=== PATIENT | male | born 1940 | race Caucasian/White ===

== ENCOUNTER 2018-01-08 10:18 | Inpatient (IN) | payer OTHER ==
[~2018-01-08] VITALS: Ht 162.6 cm; Wt 71.8 kg
[2018-01-08] MEDS ORDERED: IPRATROPIUM/ALBUTEROL SULFATE 3 ML SOLUTION IH ONE (10:21)
[2018-01-08 10:35] LABS: ABG BASE EXCESS -1.8 mmol/L (-2.0-3.0); ABG HCO3 20.9 mmol/L (21.0-28.0); ABG OXYGEN SATURATION 98.8 % (95.0-99.0); ABG PCO2 30 mmHg (35-48)
[2018-01-08 10:41] LABS: BASOPHILS % (AUTO) 1.2 % (0.0-5.0); HEMATOCRIT 49.7 % (42-54); MEAN CORPUSCULAR HEMOGLOBIN 32.2 pg (27.0-33.0); MEAN CORPUSCULAR HGB CONC 34.9 g/dL (32.0-36.0); MEAN CORPUSCULAR VOLUME 92.3 fL (79-99); MONOCYTES % (AUTO) 9.2 % (3.0-13.0); NEUTROPHILS % (AUTO) 66.6 % (40.0-77.0); NUCLEATED RED BLOOD CELLS 0.1 % (0.0-0.19); PLATELET COUNT (AUTO) 198 K/uL (130-400); RED BLOOD CELL COUNT(AUTO) 5.39 MIL/uL (4.50-6.20)
[2018-01-08 10:47] LABS: POTASSIUM 4.1 mmol/L (3.5-5.1)
[2018-01-08 10:50] LABS: INR 1.09 (0.85-1.15); PARTIAL THROMBOPLASTIN TIME 29.9 SEC (26.3-35.5); PROTHROMBIN TIME 11.4 SEC (9.6-11.6)
[2018-01-08] MEDS ORDERED: LEVOFLOXACIN 500 MG/D5W 100 ML 100 ML ONE (10:52)
[2018-01-08] MEDS ORDERED: CEFTRIAXONE SODIUM 1 GM ONE (10:53)
[2018-01-08 11:00] LABS: ALBUMIN 3.3 g/dL (3.5-5.0); BILIRUBIN,TOTAL 0.8 mg/dL (0.2-1.0); CREATINE KINASE MB 0.6 ng/mL (0.5-3.6); TOTAL PROTEIN, SERUM 7.7 g/dL (6.0-8.3)
[2018-01-08 11:09] LABS: B-TYPE NATRIURETIC PEPTIDE 93 pg/mL (0-100)
[2018-01-08 12:04] LABS: APPEARANCE,URINE Clear (CLEAR); BILIRUBIN,URINE Negative (NEGATIVE); COLOR,URINE Dark Yellow (YELLOW); GLUCOSE, URINE (UA) Negative (NEGATIVE); KETONES,URINE Negative (NEGATIVE); LEUKOCYTE ESTERASE ,URINE Negative (NEGATIVE); NITRATE,URINE Negative (NEGATIVE); OCCULT BLOOD,URINE Negative (NEGATIVE); PROTEIN,URINE Negative (NEGATIVE)
[2018-01-08 12:21] VITALS: BP 151/86
[2018-01-08] MEDS ORDERED: SODIUM CHLORIDE 0.9% 10 ML VIAL IVP PRN (12:30)
[2018-01-08] MEDS: IPRATROPIUM/ALBUTEROL SULFATE 3 ML SOLUTION IH SCH ×3 (14:43→22:06)
[2018-01-08 16:00] VITALS: BP 155/83
[2018-01-08 19:48] VITALS: BP 144/75
[2018-01-08] MEDS: METHYLPREDNISOLONE SOD SUCC 40MG/ML 1ML IVP SCH (21:13)
[2018-01-09] VITALS (7 sets, daily range): BP systolic 124–142; BP diastolic 72–90
[2018-01-09] MEDS: IPRATROPIUM/ALBUTEROL SULFATE 3 ML SOLUTION IH SCH ×6 (01:42→21:56)
[2018-01-09 03:11] LABS: CREATININE 1.1 mg/dL (0.5-1.5); MAGNESIUM 2.1 mg/dL (1.80-2.40); POTASSIUM 4.5 mmol/L (3.5-5.1)
[2018-01-09 03:12] LABS: HEMATOCRIT 51.4 % (42-54); MEAN CORPUSCULAR HEMOGLOBIN 32.4 pg (27.0-33.0); MEAN CORPUSCULAR HGB CONC 34.6 g/dL (32.0-36.0); MEAN CORPUSCULAR VOLUME 93.6 fL (79-99); NUCLEATED RED BLOOD CELLS 0.1 % (0.0-0.19); PLATELET COUNT (AUTO) 209 K/uL (130-400); RED CELL DISTRIBUTION WIDTH 13.2 % (11.0-15.5); WHITE BLOOD COUNT (AUTO) 7.6 K/uL (4.8-10.8)
[2018-01-09] MEDS: METHYLPREDNISOLONE SOD SUCC 40MG/ML 1ML IVP SCH ×2 (08:40→21:42)
[2018-01-09] MEDS: ENOXAPARIN SODIUM 40 MG/0.4 ML SYRINGE SQ SCH (08:40)
[2018-01-09] MEDS: PANTOPRAZOLE SODIUM 40 MG TABLET.DR PO SCH (08:40)
[2018-01-09] MEDS ORDERED: MAGN250T10 PO (12:18)
[2018-01-09] MEDS ORDERED: [UNRECOGNIZED DRUG - OTHER] (12:18)
[2018-01-09] MEDS ORDERED: LANS30CA55 PO (12:18)
[2018-01-09] MEDS ORDERED: SYSTANE I PO (12:18)
[2018-01-09] MEDS ORDERED: ALBU18HF7 IH (12:18)
[2018-01-09] MEDS ORDERED: VIT1CAPS47 PO (12:18)
[2018-01-09] MEDS ORDERED: DICL50TA9 PO (12:18)
[2018-01-09] MEDS ORDERED: oil of oregano PO (12:18)
[2018-01-09] MEDS ORDERED: CRAN500C3 PO (12:18)
[2018-01-09] MEDS ORDERED: TIOT18CA3 IH (12:18)
[2018-01-09] MEDS ORDERED: [UNRECOGNIZED DRUG - OTHER] PO (12:18)
[2018-01-09] MEDS ORDERED: GLUC1CAP14 PO (12:18)
[2018-01-09] MEDS ORDERED: EPHE1TAB PO (12:19)
[2018-01-09] MEDS: LEVOFLOXACIN 500 MG/D5W 100 ML 100 ML IV SCH (16:56)
[2018-01-09] MEDS: IPRATROPIUM 0.5 MG/2.5 ML INH IH SCH (18:00)
[2018-01-10] MEDS: IPRATROPIUM/ALBUTEROL SULFATE 3 ML SOLUTION IH SCH ×6 (02:26→21:49)
[2018-01-10 03:28] VITALS: BP_DIAS 73
[2018-01-10 04:26] LABS: HEMATOCRIT 46.3 % (42-54); MEAN CORPUSCULAR HEMOGLOBIN 31.6 pg (27.0-33.0); MEAN CORPUSCULAR HGB CONC 33.8 g/dL (32.0-36.0); MEAN CORPUSCULAR VOLUME 93.4 fL (79-99); PLATELET COUNT (AUTO) 225 K/uL (130-400); RED BLOOD CELL COUNT(AUTO) 4.95 MIL/uL (4.50-6.20); RED CELL DISTRIBUTION WIDTH 13.3 % (11.0-15.5); WHITE BLOOD COUNT (AUTO) 12.7 K/uL (4.8-10.8)
[2018-01-10 04:35] LABS: CREATININE 1.2 mg/dL (0.5-1.5); POTASSIUM 4.8 mmol/L (3.5-5.1)
[2018-01-10 07:00] VITALS: BP 143/80
[2018-01-10] MEDS ORDERED: METHYLPREDNISOLONE SOD SUCC 40MG/ML 1ML IVP SCH (09:00)
[2018-01-10] MEDS: PANTOPRAZOLE SODIUM 40 MG TABLET.DR PO SCH (10:07)
[2018-01-10] MEDS: LEVOFLOXACIN 500 MG/D5W 100 ML 100 ML IV SCH (10:07)
[2018-01-10] MEDS: ENOXAPARIN SODIUM 40 MG/0.4 ML SYRINGE SQ SCH (10:08)
[2018-01-10 11:00] VITALS: BP 129/67
[2018-01-10 16:00] VITALS: BP 138/78
[2018-01-10] MEDS: IPRATROPIUM 0.5 MG/2.5 ML INH IH SCH (18:00)
[2018-01-10 20:05] VITALS: BP 135/75
[2018-01-10 23:35] VITALS: BP 137/77
[2018-01-11] MEDS: IPRATROPIUM/ALBUTEROL SULFATE 3 ML SOLUTION IH SCH ×6 (01:35→21:41)
[2018-01-11 04:20] LABS: HEMATOCRIT 45.1 % (42-54); MEAN CORPUSCULAR HEMOGLOBIN 32.2 pg (27.0-33.0); MEAN CORPUSCULAR HGB CONC 34.7 g/dL (32.0-36.0); MEAN CORPUSCULAR VOLUME 92.9 fL (79-99); PLATELET COUNT (AUTO) 217 K/uL (130-400); RED BLOOD CELL COUNT(AUTO) 4.85 MIL/uL (4.50-6.20); RED CELL DISTRIBUTION WIDTH 13.2 % (11.0-15.5); WHITE BLOOD COUNT (AUTO) 9.6 K/uL (4.8-10.8)
[2018-01-11 04:30] LABS: CREATININE 1.3 mg/dL (0.5-1.5); MAGNESIUM 1.9 mg/dL (1.80-2.40); POTASSIUM 4.1 mmol/L (3.5-5.1)
[2018-01-11 05:38] VITALS: BP 122/77
[2018-01-11 08:07] VITALS: BP 151/83
[2018-01-11] MEDS: PANTOPRAZOLE SODIUM 40 MG TABLET.DR PO SCH (08:57)
[2018-01-11] MEDS: PREDNISONE 20 MG TABLET PO SCH (08:57)
[2018-01-11] MEDS: LEVOFLOXACIN 500 MG/D5W 100 ML 100 ML IV SCH (08:57)
[2018-01-11] MEDS: ENOXAPARIN SODIUM 40 MG/0.4 ML SYRINGE SQ SCH (08:58)
[2018-01-11 11:45] VITALS: BP 141/88
[2018-01-11 16:00] VITALS: BP 136/82
[2018-01-11] MEDS: IPRATROPIUM 0.5 MG/2.5 ML INH IH SCH ×2 (18:00)
[2018-01-11 20:15] VITALS: BP 122/73
[2018-01-12] VITALS (7 sets, daily range): BP systolic 117–141; BP diastolic 67–76
[2018-01-12] MEDS: IPRATROPIUM/ALBUTEROL SULFATE 3 ML SOLUTION IH SCH ×6 (01:31→22:13)
[2018-01-12 04:12] LABS: HEMATOCRIT 44.5 % (42-54); MEAN CORPUSCULAR HEMOGLOBIN 32.3 pg (27.0-33.0); MEAN CORPUSCULAR HGB CONC 34.8 g/dL (32.0-36.0); MEAN CORPUSCULAR VOLUME 92.9 fL (79-99); PLATELET COUNT (AUTO) 209 K/uL (130-400); RED BLOOD CELL COUNT(AUTO) 4.79 MIL/uL (4.50-6.20); WHITE BLOOD COUNT (AUTO) 8.3 K/uL (4.8-10.8)
[2018-01-12 04:16] LABS: CREATININE 1.1 mg/dL (0.5-1.5)
[2018-01-12] MEDS: IPRATROPIUM 0.5 MG/2.5 ML INH IH SCH ×3 (06:00→12:00)
[2018-01-12 06:26] LABS: BAND NEUTROPHILS % (MANUAL) 1 % (0-2); LYMPHOCYTES % (MANUAL) 20 % (22-44); MAN.DIFF COMMENT-IMPRESSION MANUAL DIFFERENTIAL; MONOCYTES % (MANUAL) 11 % (2-9); PLATELET MORPHOLOGY COMMENT ADEQUATE; SEGMENTED NEUTROPHILS % 68 % (40-70)
[2018-01-12] MEDS: PANTOPRAZOLE SODIUM 40 MG TABLET.DR PO SCH (10:06)
[2018-01-12] MEDS: PREDNISONE 20 MG TABLET PO SCH (10:06)
[2018-01-12] MEDS: ENOXAPARIN SODIUM 40 MG/0.4 ML SYRINGE SQ SCH (10:07)
[2018-01-12] MEDS: LEVOFLOXACIN 500 MG/D5W 100 ML 100 ML IV SCH (10:07)
[2018-01-12] MEDS: LACTULOSE 20 GM/30 ML UDCUP PO SCH (12:00)
[2018-01-12] MEDS ORDERED: VANCOMYCIN PROTOCOL PER PHARMACY IV SCH (14:30)
[2018-01-12] MEDS: BUDESONIDE 0.5 MG/2 ML INH IH SCH (18:53)
[2018-01-12] MEDS ORDERED: SUB PER P&T FOR ASTHMA OR COPD RECOMMENDATION IH SCH (21:00)
[2018-01-13] MEDS: IPRATROPIUM/ALBUTEROL SULFATE 3 ML SOLUTION IH SCH ×6 (01:58→21:43)
[2018-01-13 03:34] VITALS: BP 122/60
[2018-01-13 04:27] LABS: HEMATOCRIT 43.6 % (42-54); MEAN CORPUSCULAR HEMOGLOBIN 32.2 pg (27.0-33.0); MEAN CORPUSCULAR HGB CONC 34.8 g/dL (32.0-36.0); MEAN CORPUSCULAR VOLUME 92.4 fL (79-99); PLATELET COUNT (AUTO) 221 K/uL (130-400); RED BLOOD CELL COUNT(AUTO) 4.72 MIL/uL (4.50-6.20); RED CELL DISTRIBUTION WIDTH 12.8 % (11.0-15.5); WHITE BLOOD COUNT (AUTO) 7.5 K/uL (4.8-10.8)
[2018-01-13 04:46] LABS: CREATININE 1.2 mg/dL (0.5-1.5); MAGNESIUM 1.9 mg/dL (1.80-2.40); POTASSIUM 3.5 mmol/L (3.5-5.1)
[2018-01-13 05:03] LABS: BAND NEUTROPHILS % (MANUAL) 6 % (0-2); LYMPHOCYTES % (MANUAL) 12 % (22-44); MONOCYTES % (MANUAL) 13 % (2-9); SEGMENTED NEUTROPHILS % 69 % (40-70)
[2018-01-13 05:04] LABS: MAN.DIFF COMMENT-IMPRESSION MANUAL DIFFERENTIAL; PLATELET MORPHOLOGY COMMENT ADEQUATE
[2018-01-13] MEDS: BUDESONIDE 0.5 MG/2 ML INH IH SCH ×2 (06:17→19:09)
[2018-01-13 07:00] VITALS: BP 132/72
[2018-01-13] MEDS: PREDNISONE 20 MG TABLET PO SCH (08:43)
[2018-01-13] MEDS: PANTOPRAZOLE SODIUM 40 MG TABLET.DR PO SCH (08:43)
[2018-01-13] MEDS: Diclofenac Sodium 50 MG PO SCH ×2 (08:45→21:00)
[2018-01-13] MEDS: MAGNESIUM OXIDE PO SCH (08:45)
[2018-01-13] MEDS: [UNRECOGNIZED DRUG - OTHER] PO SCH (08:45)
[2018-01-13] MEDS: ENOXAPARIN SODIUM 40 MG/0.4 ML SYRINGE SQ SCH (08:45)
[2018-01-13 11:00] VITALS: BP 120/66
[2018-01-13] MEDS: LACTULOSE 20 GM/30 ML UDCUP PO SCH (11:54)
[2018-01-13] MEDS ORDERED: AMOXICILLIN 500 MG CAPSULE PO SCH (15:17)
[2018-01-13 15:52] LABS: HEMATOCRIT 46.9 % (42-54); MEAN CORPUSCULAR HEMOGLOBIN 32.1 pg (27.0-33.0); MEAN CORPUSCULAR HGB CONC 34.7 g/dL (32.0-36.0); MEAN CORPUSCULAR VOLUME 92.4 fL (79-99); PLATELET COUNT (AUTO) 226 K/uL (130-400); RED BLOOD CELL COUNT(AUTO) 5.07 MIL/uL (4.50-6.20); RED CELL DISTRIBUTION WIDTH 12.9 % (11.0-15.5)
[2018-01-13 15:58] LABS: CREATININE 1.1 mg/dL (0.5-1.5); POTASSIUM 4.5 mmol/L (3.5-5.1)
[2018-01-13 16:00] VITALS: BP 141/79
[2018-01-13 16:18] LABS: LYMPHOCYTES % (MANUAL) 5 % (22-44); MONOCYTES % (MANUAL) 4 % (2-9); REACTIVE LYMPHOCYTES 5 % (0-0); SEGMENTED NEUTROPHILS % 86 % (40-70)
[2018-01-13 16:19] LABS: PLATELET MORPHOLOGY COMMENT ADEQUATE
[2018-01-13] MEDS: LEVOFLOXACIN 500 MG/D5W 100 ML 100 ML IV SCH (16:50)
[2018-01-13] MEDS ORDERED: AMOX500C2 PO (17:45)
[2018-01-13] MEDS ORDERED: ALBU8.5H8 IH (17:45)
[2018-01-13] MEDS ORDERED: PRED20B PO (17:45)
[2018-01-13] MEDS ORDERED: BUDE10.2 IH (17:45)
[2018-01-13 20:00] VITALS: BP 126/74
[2018-01-13] MEDS: AMOXICILLIN 500 MG CAPSULE PO SCH (22:15)
[2018-01-13 23:45] VITALS: BP 122/70
[2018-01-14] MEDS: IPRATROPIUM/ALBUTEROL SULFATE 3 ML SOLUTION IH SCH ×4 (02:19→14:22)
[2018-01-14 03:54] VITALS: BP 114/70
[2018-01-14] MEDS: IPRATROPIUM 0.5 MG/2.5 ML INH IH SCH ×2 (06:00→12:00)
[2018-01-14] MEDS: BUDESONIDE 0.5 MG/2 ML INH IH SCH (06:42)
[2018-01-14 07:00] VITALS: BP 123/72
[2018-01-14] MEDS: MAGNESIUM OXIDE PO SCH (09:00)
[2018-01-14] MEDS: [UNRECOGNIZED DRUG - OTHER] PO SCH (09:00)
[2018-01-14] MEDS: Diclofenac Sodium 50 MG PO SCH (09:00)
[2018-01-14] MEDS: PANTOPRAZOLE SODIUM 40 MG TABLET.DR PO SCH (09:32)
[2018-01-14] MEDS: AMOXICILLIN 500 MG CAPSULE PO SCH (09:32)
[2018-01-14] MEDS: PREDNISONE 20 MG TABLET PO SCH (09:32)
[2018-01-14] MEDS: ENOXAPARIN SODIUM 40 MG/0.4 ML SYRINGE SQ SCH (09:33)
[2018-01-14] MEDS: LEVOFLOXACIN 500 MG/D5W 100 ML 100 ML IV SCH (09:36)
[2018-01-14 11:00] VITALS: BP 118/73
[2018-01-14] MEDS: LACTULOSE 20 GM/30 ML UDCUP PO SCH (12:00)
[2018-01-14 16:23] VITALS: BP 127/69
== END 2018-01-14 19:00 | disposition home or self-care (01) | DRG 193 ==
LOC: EDH 10:18 → 2AH 10:19
PROVIDERS: ADMIT Family Medicine; ATTEND Family Medicine
PROC: 5A09357 Assistance with Respiratory Ventilation, Less than 24 Consecutive Hours, Continuous Positive Airway Pressure (ICD-10-PCS; principal; 2018-01-08)
DX: J18.9 Pneumonia, unspecified organism (principal); J96.21 Acute and chronic respiratory failure with hypoxia; B96.89 Other specified bacterial agents as the cause of diseases classified elsewhere; R78.81 Bacteremia; B95.2 Enterococcus as the cause of diseases classified elsewhere; J44.0 Chronic obstructive pulmonary disease with (acute) lower respiratory infection; J44.1 Chronic obstructive pulmonary disease with (acute) exacerbation; H35.30 Unspecified macular degeneration; J61 Pneumoconiosis due to asbestos and other mineral fibers; K21.9 Gastro-esophageal reflux disease without esophagitis; M19.90 Unspecified osteoarthritis, unspecified site; Z77.090 Contact with and (suspected) exposure to asbestos; Z87.891 Personal history of nicotine dependence; Z99.81 Dependence on supplemental oxygen
CPT/HCPCS: 36415; 36600; 71045; 71250; 80048; 80053; 81003; 82550; 82553; 82803; 83605; 83735; 83880; 84484; 85025; 85027; 85610; 85730; 87040; 87186; 87633; 87804; 93005; 93306; 94640; 94660; 94664; 94667; 94668; 99291; J0696; J1650; J1956; J2920